=== PATIENT | female | born 1945 | race Asian ===

== ENCOUNTER 2016-11-08 08:10 | Emergency (ER) | payer MEDICARE, OTHER | END 2016-11-08 08:44 | disposition home or self-care (01) | LOC: ER 08:10 | DX: L50.0 Allergic urticaria (principal); T36.0X5A Adverse effect of penicillins, initial encounter; I10 Essential (primary) hypertension; E78.5 Hyperlipidemia, unspecified; Z79.82 Long term (current) use of aspirin; Z79.899 Other long term (current) drug therapy ==